=== PATIENT | female | born 1985 | race Caucasian/White ===

== ENCOUNTER 2017-09-26 13:13 | Emergency (ER) | payer SELFPAY ==
[~2017-09-26] VITALS: Ht 177.8 cm; Wt 68.0 kg
--- NOTE | 2017-09-26 13:13 | NUR ---
Patient BIBA BLS, transferred to bed 11. RN evaluating patient at bedside.
[2017-09-26 13:17] VITALS: BP_SYST 123; BP_SYST 160; BP_DIAS 100; BP_DIAS 76
--- NOTE | 2017-09-26 13:32 | NUR ---
Patient being evaluated by physician at bedside.
--- NOTE | 2017-09-26 13:37 | NUR ---
32 YO FEMALE BIB EMS FROM FIELD, FOR ETOH CONSUMPTION SHE IS AWAKE ON ARRIVAL, VERY PROFANE. BREATHING EVEN AND UNLABORED. ERMD NOTIFIED OF PATIENT STATUS.
[2017-09-26 14:00] LABS: BASOPHILS # (AUTO) 0.1 K/uL (0.00-0.22); BASOPHILS % (AUTO) 2.2 % (0.0-2.0); EOSINOPHILS % (AUTO) 0.9 % (0.0-4.0); HEMATOCRIT 40.6 % (36-48); HEMOGLOBIN 13.1 g/dL (12.0-16.0); LYMPHOCYTES # (AUTO) 1.6 K/uL (2.5-16.5); LYMPHOCYTES % (AUTO) 31.6 % (20.5-51.1); MEAN CORPUSCULAR HEMOGLOBIN 27 pg (27-31); MEAN CORPUSCULAR HGB CONC 32 g/dL (33-37); MEAN CORPUSCULAR VOLUME 82 fL (80-94); MONOCYTES # (AUTO) 0.3 K/uL (0.8-1.0); MONOCYTES % (AUTO) 5.1 % (1.7-9.3); NEUTROPHILS # (AUTO) 3.1 K/uL (1.8-7.7); NEUTROPHILS % (AUTO) 60.2 % (42.2-75.2); PLATELET COUNT (AUTO) 439 K/uL (140-450); RED BLOOD CELL COUNT(AUTO) 4.96 MIL/uL (4.20-5.40); RED CELL DISTRIBUTION WIDTH 21.3 % (11.6-13.7); WHITE BLOOD COUNT (AUTO) 5.1 K/uL (4.8-10.8)
[2017-09-26 14:08] LABS: ANION GAP 17.2 (8-16); CARBON DIOXIDE 26.3 mmol/L (21-32); CREATININE 0.8 mg/dL (0.6-1.3); POTASSIUM 4.5 mmol/L (3.5-5.1)
[2017-09-26 14:15] LABS: ALBUMIN 3.9 g/dL (3.4-5.0); TOTAL BILIRUBIN 0.3 mg/dL (0.0-1.0)
--- NOTE | 2017-09-26 14:30 | NUR ---
PT RESTING; VSS; PATIENT POSITIONED FOR COMFORT; HOB ELEVATED; BEDRAILS UP X2; BED DOWN. ER MD MADE AWARE OF PT STATUS.
[2017-09-26 14:32] LABS: BARBITURATE, URINE NEG. ng/ml (NEG <=200); BENZODIAZEPINE, URINE NEG. ng/mL (NEG <=200); CANNABINOID, URINE POS. ng/mL (NEG <=50); COCAINE, URINE NEG. ng/mL (NEG <=300); OPIATE, URINE NEG. ng/mL (NEG <=2000); PHENCYCLIDINE SCREEN,URINE NEG. ng/mL (NEG <=25)
--- NOTE | 2017-09-26 15:24 | NUR ---
PT RESTING; VSS; PATIENT POSITIONED FOR COMFORT; HOB ELEVATED; BEDRAILS UP X2; BED DOWN. ER MD MADE AWARE OF PT STATUS.
--- NOTE | 2017-09-26 16:53 | NUR ---
PT STATES SHE WANTS TO SPEAK WITH THE ERMD. ERMD NOTIFIED OF PATIENT STATUS.
--- NOTE | 2017-09-26 17:38 | NUR ---
PT EATING DINER; VSS; PATIENT POSITIONED FOR COMFORT; HOB ELEVATED; BEDRAILS UP X2; BED DOWN. ER MD MADE AWARE OF PT STATUS.
[2017-09-26 18:25] VITALS: BP 132/74
--- NOTE | 2017-09-26 18:25 | NUR ---
Patient discharged with v/s stable. Written and verbal after care instructions given and explained. Patient verbalized understanding. Ambulatory with steady gait. All questions addressed prior to discharge. Advised to follow up with PMD. PATIENT PROVIDED WITH BUS PASS AND GIVEN DIRECTIONS TO BUS STOP.
== END 2017-09-26 18:25 | disposition home or self-care (01) ==
LOC: MED 13:13
DX: F10.129 Alcohol abuse with intoxication, unspecified (principal); R07.89 Other chest pain
CPT/HCPCS: 36415; 71010; 80053; 80305; 81002; 81025; 83690; 84484; 85025; 85610; 85730; 93005; 99285; G0482; Q0092